=== PATIENT | male | born 1950 | race Caucasian/White ===

== ENCOUNTER 2021-10-28 12:40 | Observation (INO) | payer OTHER, MEDICARE ==
[2021-10-28] MEDS ORDERED: Sodium Chloride 0.9% 10 ML Syringe FLUSH PRN (12:53)
[2021-10-28] MEDS ORDERED: Ondansetron 4 MG/2 ML SDV IVPUSH STA (12:54)
[2021-10-28] MEDS ORDERED: Acetaminophen 325 MG Tab PO ONE (12:56)
[2021-10-28] MEDS ORDERED: Sodium Chloride 0.9% 500 ML IV SCH (13:00)
[2021-10-28] MEDS: Sodium Chloride 0.9% 1,000 ML IV SCH ×2 (13:40→21:23)
[2021-10-28] MEDS ORDERED: NYSTATIN 100000 UNIT/ML PO PRN (15:16)
[2021-10-28] MEDS ORDERED: Non-Formulary Medication 1 Each (Risedronate Sodium [Risedronate Sodium] 35 MG Tablet) PO SCH (15:16)
[2021-10-28] MEDS ORDERED: Ondansetron 4 MG Tab.DIS PO PRN (15:16)
[2021-10-28] MEDS ORDERED: Acetaminophen 325 MG Tab PO PRN (15:16)
[2021-10-28] MEDS ORDERED: Albuterol 0.083% 2.5 MG/3 ML Neb Soln INH PRN (16:19)
[2021-10-28] MEDS: AMOXICILLIN PO SCH (17:35)
[2021-10-28] MEDS: CLAVULANATE K PO SCH (17:35)
[2021-10-28] MEDS: CARBOXYMETHYLCELLULOSE EYEBOTH SCH (19:33)
[2021-10-28] MEDS: SALMETEROL INH SCH (19:37)
[2021-10-28] MEDS: FLUTICASONE PROPION INH SCH (19:37)
[2021-10-28] MEDS: CARBAMAZEPINE 200 MG PO SCH (19:39)
[2021-10-28] MEDS ORDERED: MINERAL OIL EYERT SCH (20:00)
[2021-10-28] MEDS ORDERED: Non-Formulary Medication 1 Each (Cyclosporine [Restasis Multidose] 5.5 ML Drops) EYEBOTH SCH (20:00)
[2021-10-28] MEDS ORDERED: PETROLATUM WHITE EYERT SCH (20:00)
[2021-10-28] MEDS ORDERED: Acetaminophen 500 MG Tab PO PRN (21:57)
[2021-10-29] MEDS: Sodium Chloride 0.9% 1,000 ML IV SCH (04:52)
[2021-10-29] MEDS ORDERED: Ibuprofen 200 MG Tab PO PRN (04:53)
[2021-10-29] MEDS ORDERED: Non-Formulary Medication 1 Each (Ciclopirox/Urea/Camph/Men/Euc [Ciclopirox 8% Treatment Ki TOP SCH (08:00)
[2021-10-29] MEDS ORDERED: PREDNISONE 10 MG PO SCH (08:00)
[2021-10-29] MEDS ORDERED: Heparin Sodium 5,000 Units/ML Vial SUBCUT SCH (08:00)
[2021-10-29] MEDS ORDERED: Pantoprazole 40 MG Tab.CR PO SCH (08:00)
[2021-10-29] MEDS ORDERED: TRIMETHOPRIM PO SCH (08:00)
[2021-10-29] MEDS ORDERED: SULFAMETHOXAZOLE PO SCH (08:00)
[2021-10-29] MEDS ORDERED: Cholecalciferol (Vitamin D3) 25 MCG Tab PO SCH (08:00)
[2021-10-29] MEDS: CARBAMAZEPINE 200 MG PO SCH (08:13)
[2021-10-29] MEDS: CLAVULANATE K PO SCH (08:14)
[2021-10-29] MEDS: SALMETEROL INH SCH (08:14)
[2021-10-29] MEDS: FLUTICASONE PROPION INH SCH (08:14)
[2021-10-29] MEDS: CARBOXYMETHYLCELLULOSE EYEBOTH SCH (08:14)
[2021-10-29] MEDS: AMOXICILLIN PO SCH (08:14)
[2021-10-29 08:31] VITALS: PULSE 95
[2021-10-29] MEDS ORDERED: Sodium Chloride 0.9% 500 ML IV SCH (08:45)
[2021-10-29 08:53] VITALS: BP 78/54
[2021-10-29 10:24] LABS: PTT,PARTIAL THROMBOPLSTIN TIME 28.9 SEC (23.2-32.3)
[2021-10-29] MEDS ORDERED: Piperacillin/Tazobactam 4.5 GM in Sodium Chloride 0.9% 100 ML IV ONE (10:29)
[2021-10-29] MEDS ORDERED: Norepinephrine 4 MG in Dextrose 5% in Water 246 ML IV SCH ×2 (10:45)
== END 2021-10-29 12:11 ==
LOC: CC.ED 12:40 → CC.MS 14:26 → UNDOADMOB 14:26 → CC.MS 14:31
PROVIDERS: ADMIT Nurse Practitioner Family; ATTEND Nurse Practitioner Family
DX: R50.9 Fever, unspecified (principal); R53.1 Weakness; E86.0 Dehydration; N17.9 Acute kidney failure, unspecified; H54.7 Unspecified visual loss; Z88.8 Allergy status to other drugs, medicaments and biological substances; Z79.899 Other long term (current) drug therapy; Z20.822 Contact with and (suspected) exposure to COVID-19
CPT/HCPCS: 36415; 71046; 80053; 81001; 83605; 84484; 85025; 85610; 85730; 86140; 87040; 87804; 93005; 96361; 96365; 96366; 96368; 96372; 96374; 96375; 99217; 99220; 99285-25; A9270-GY; G0378; J1644; J2405; J2543; J7030; J7040; J7060; J7512; U0002